=== PATIENT | female | born 1945 | race Caucasian/White ===

== ENCOUNTER 2020-02-03 10:50 | Emergency (ER) | payer MEDICARE ==
[~2020-02-03] VITALS: Ht 170.2 cm; Wt 123.2 kg
[~2020-02-03 10:50] MED LIST: ASPI-1265 PO; DULO-31 PO; LISI2.5T2 PO
[2020-02-03 11:20] VITALS: BP 134/80
[2020-02-03] MEDS ORDERED: TRAM50TA2 PO (12:25)
[2020-02-03] MEDS ORDERED: ketorolac tromethamine 15mg/ml inj. IM ONE (12:25)
== END 2020-02-03 13:03 | disposition home or self-care (01) ==
LOC: ER 10:50
DX: M25.572 Pain in left ankle and joints of left foot (principal); M19.072 Primary osteoarthritis, left ankle and foot; M25.472 Effusion, left ankle; Z86.14 Personal history of Methicillin resistant Staphylococcus aureus infection; Z98.890 Other specified postprocedural states; Z88.2 Allergy status to sulfonamides; Z88.5 Allergy status to narcotic agent; Z79.82 Long term (current) use of aspirin; Z79.899 Other long term (current) drug therapy
CPT/HCPCS: 73610; 96372; 99283; J1885

== ENCOUNTER 2022-03-10 14:00 | Emergency (ER) | payer MEDICARE ==
[~2022-03-10] VITALS: Ht 170.2 cm; Wt 115.9 kg
[~2022-03-10 14:00] MED LIST changes: +LISI2.5T14 PO; -LISI2.5T2 PO
[2022-03-10 14:08] VITALS: BP 147/73
[2022-03-10] MEDS ORDERED: ibuprofen 200mg tablet PO ONE (16:00)
[2022-03-10 16:35] LABS: BASOPHILS # (AUTO) 0.1 X10'3 (0-0.2); BASOPHILS % (AUTO) 1.3 % (0-1); EOSINOPHILS # (AUTO) 0.1 X10'3 (0-0.9); EOSINOPHILS % (AUTO) 1.5 % (0-6); HEMATOCRIT 42.4 % (35.0-45.0); HEMOGLOBIN 13.9 g/dl (12.0-16.0); LYMPHOCYTES % (AUTO) 24.4 % (21-51); MEAN CORPUSCULAR HEMOGLOBIN 32.4 PG (27.0-31.0); MEAN CORPUSCULAR HGB CONC 32.8 g/dL (33.0-36.5); MEAN CORPUSCULAR VOLUME 98.8 FL (78-98); MEAN PLATELET VOLUME 9.5 FL (7.4-10.4); MONOCYTES # (AUTO) 0.7 X10'3 (0-0.9); NEUTROPHILS # (AUTO) 5.1 X10'3 (1.8-7.7); NEUTROPHILS % (AUTO) 63.8 % (42-75); PLATELET COUNT 157 X10'3 (140-440); RED BLOOD COUNT 4.29 X10'6 (4.20-5.60); RED CELL DISTRIBUTION WIDTH 15.6 % (11.5-14.5)
[2022-03-10 16:58] LABS: ALANINE AMINOTRANSFERASE 40 U/L (12-78); ALBUMIN 2.9 G/DL (3.4-5.0); ALBUMIN/GLOBULIN RATIO 0.9 (1.1-1.5); ALKALINE PHOSPHATASE 78 IU/L (46-116); ANION GAP 3 (8-16); ASPARTATE AMINO TRANSFERASE 50 U/L (10-37); BILIRUBIN,TOTAL 0.4 MG/DL (0.1-1.0); BLOOD UREA NITROGEN 17 MG/DL (7-18); BUN/CREATININE RATIO 17.2 (6.6-38.0); C-REACTIVE PROTEIN 0.08 MG/DL (0.0-0.5); CALCIUM 9.4 MG/DL (8.5-10.1); CHLORIDE 107 MMOL/L (99-107); CREATININE 0.99 MG/DL (0.40-0.90); GLUCOSE 100 MG/DL (70-104); SODIUM 143 MMOL/L (135-145); TOTAL CARBON DIOXIDE 32.7 MMOL/L (24-32); TOTAL PROTEIN 6.1 G/DL (6.4-8.2); eGFR 54 ML/MIN
[2022-03-10 17:20] LABS: D-DIMER 0.84 MG/L FEU (0-0.50)
== END 2022-03-10 19:08 | disposition home or self-care (01) ==
LOC: ER 14:01
DX: M25.561 Pain in right knee (principal); M25.461 Effusion, right knee; Z87.440 Personal history of urinary (tract) infections; Z86.14 Personal history of Methicillin resistant Staphylococcus aureus infection; Z98.890 Other specified postprocedural states; Z88.2 Allergy status to sulfonamides; Z88.8 Allergy status to other drugs, medicaments and biological substances; Z79.82 Long term (current) use of aspirin; Z79.899 Other long term (current) drug therapy
CPT/HCPCS: 36415; 73564; 80053; 85025; 85379; 85651; 86140; 93971; 99285

== ENCOUNTER 2022-04-27 07:39 | Emergency (ER) | payer MEDICARE ==
[~2022-04-27] VITALS: Ht 170.2 cm; Wt 252.0 kg
[2022-04-27 09:15] LABS: BASOPHILS % (AUTO) 0.4 % (0-1); EOSINOPHILS % (AUTO) 0.4 % (0-6); HEMATOCRIT 44.9 % (35.0-45.0); HEMOGLOBIN 14.6 g/dl (12.0-16.0); LYMPHOCYTES % (AUTO) 9.1 % (21-51); MEAN CORPUSCULAR HEMOGLOBIN 32.3 PG (27.0-31.0); MEAN CORPUSCULAR HGB CONC 32.5 g/dL (33.0-36.5); MEAN CORPUSCULAR VOLUME 99.4 FL (78-98); MEAN PLATELET VOLUME 9.7 FL (7.4-10.4); MONOCYTES # (AUTO) 1.1 X10'3 (0-0.9); MONOCYTES % (AUTO) 9.8 % (2-12); NEUTROPHILS # (AUTO) 9.2 X10'3 (1.8-7.7); NEUTROPHILS % (AUTO) 80.3 % (42-75); PLATELET COUNT 128 X10'3 (140-440); RED BLOOD COUNT 4.52 X10'6 (4.20-5.60); WHITE BLOOD COUNT 11.5 X10'3 (4.5-11.0)
[2022-04-27 09:37] LABS: ALANINE AMINOTRANSFERASE 52 U/L (12-78); ALBUMIN 3.1 G/DL (3.4-5.0); ALBUMIN/GLOBULIN RATIO 0.9 (1.1-1.5); ALKALINE PHOSPHATASE 79 IU/L (46-116); ASPARTATE AMINO TRANSFERASE 64 U/L (10-37); BILIRUBIN,TOTAL 0.5 MG/DL (0.1-1.0); BLOOD UREA NITROGEN 10 MG/DL (7-18); BUN/CREATININE RATIO 10.8 (6.6-38.0); CALCIUM 8.9 MG/DL (8.5-10.1); CREATININE 0.93 MG/DL (0.40-0.90); GLUCOSE 136 MG/DL (70-104); TOTAL CARBON DIOXIDE 30.9 MMOL/L (24-32); TOTAL PROTEIN 6.5 G/DL (6.4-8.2); eGFR 58 ML/MIN
[2022-04-27 09:45] LABS: ANION GAP 10 (8-16); CHLORIDE 104 MMOL/L (99-107); SODIUM 145 MMOL/L (135-145)
[2022-04-27] MEDS ORDERED: normal saline 1000ML IV soln IVB ONE (10:45)
[2022-04-27] MEDS ORDERED: BEBTELOVIMAB 175 MG/2 ML VIAL IV ONE (12:35)
[2022-04-27] MEDS ORDERED: CefTRIAXone 2gm/D5W 50ml BAG 50 ML IV ONE (12:55)
[2022-04-27 13:12] LABS: CLARITY,URINE CLOUDY (Clear); COLOR,URINE YELLOW (Yellow); GLUCOSE, URINE NEGATIVE (Neg); KETONES,URINE NEGATIVE (Neg); LEUKOCYTE ESTERASE ,URINE MODERATE (Neg); NITRITES, URINE POSITIVE (Neg); OCCULT BLOOD,URINE NEGATIVE (Neg); PH,URINE 6.5 (4.8-8.0); PROTEIN,URINE NEGATIVE (Neg); UROBILINOGEN,URINE 0.2 E.U/dL (0.2-1.0)
[2022-04-27 13:14] LABS: UA COLLECTION TYPE VOIDED
[2022-04-27 13:25] LABS: BACTERIA,URINE 4+ /HPF (Neg); SQUAMOUS EPITHELIAL CELL,UR MODERATE /LPF (FEW); TRANSITIONAL EPI CELLS,URINE FEW /HPF
[2022-04-27 13:26] LABS: RBC,URINE NONE SEEN /HPF (0-2); WBC CLUMPS,URINE FEW /HPF (NEGATIVE); WBC,URINE 20-30 /HPF (0-4)
[2022-04-27] MEDS ORDERED: dexamethasone sod phosphate 10mg/ml inj IV STA (14:02)
[2022-04-27] MEDS ORDERED: BENZ-38 PO (14:07)
[2022-04-27] MEDS ORDERED: CEPH-585 PO (14:07)
--- NOTE | 2022-04-27 14:20 | NUR ---
Post ambulation pulse ox is 94% on RA
[2022-04-27 14:22] VITALS: BP 144/75
== END 2022-04-27 14:51 | disposition home or self-care (01) ==
LOC: ER 07:39
DX: U07.1 COVID-19 (principal); Z86.14 Personal history of Methicillin resistant Staphylococcus aureus infection; Z88.5 Allergy status to narcotic agent; Z79.899 Other long term (current) drug therapy; Z88.2 Allergy status to sulfonamides
CPT/HCPCS: 36415; 71045; 80053; 81001; 83605; 83880; 84145; 85025; 87040; 87635; 93005; 96361; 96365; 96375; 99285; C9803; J0696; J1100; J7030; M0222; Q0222

== ENCOUNTER 2025-05-16 07:08 | Emergency (ER) | payer MEDICARE ==
[~2025-05-16] VITALS: Ht 170.2 cm; Wt 105.0 kg
--- NOTE | 2025-05-16 07:27 | Physician Documentation ---
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 The patient states she was in her wheelchair reached down and fell forward injuring her right hip. Patient states she has a fall a year ago doing the same thing and she feels like she has re-injured her injury from last year. The patient complains of moderate pain with movement of the right hip. The patient states she is not currently on any blood thinners. The patient denies any recent illness. She denies any f luis m chills nausea or vomiting. Medication Reconciliation Allergies: Coded Allergies: oxycodone (Verified Allergy, Intermediate, DIZZINESS, 05/16/25) Sulfa (Sulfonamide Antibiotics) (Verified Allergy, Unknown, 05/16/25) Scheduled Aspirin (Aspirin), 1 TAB.CHEW PO DAILY Cefpodoxime Proxetil (Cefpodoxime Proxetil), 1 TAB PO Q12H Duloxetine Hcl* (Cymbalta*), 60 MG PO DAILY, (Reported) Lisinopril (Lisinopril), 1 TAB PO DAILY, (Reported) Past Medical History Past Medical History: UTI, MRSA Abscess Past Surgical History: orthopedic surgeries Alcohol Use: None Drug Use: none Lives with: Spouse Lives In: Home Review of Systems All Other Systems at this time: Reviewed and Negative Physical Exam Physical Exam Vital Signs: Temperature: 99.0, Source: Oral, Heart Rate: 74, Respiratory Rate: 14, BP: 153/110, Pulse Oximetry: 99, Weight: 105.000 Physical Exam VITALS: Reviewed and as above. GENERAL: Alert, no apparent distress. HEENT: Normocephalic, atraumatic, PERRL, EOMI, dry mucosa, no erythema RESPIRATORY: Lungs clear, normal breath sounds, no respiratory distress. CHEST: No accessory muscle use, no retractions CV: Regular rate, rhythm, no edema, no murmur, No: JVD GI: Soft, non-tender, bowels sounds present, no rebound, guarding, or rigidity BACK: No CVA tenderness, or swelling MUSCULOSKELETAL: Pain with range of motion of the right hip there was no length discrepancy distal neurovascular exam was unremarkable SKIN: Warm and dry, no rash NEURO: Oriented x4, No motor or sensory deficit PSYCH: Normal mood and affect, no agitation Progress Results/Orders Results/Orders Orders - OHLELLE JENNINGS MD Hip Unilateral 2-3 Views (05/16/25 ) Chest,Single View (05/16/25 07:24) Monitor (05/16/25 07:24) Saline Lock (05/16/25 07:24) Oxygen (05/16/25 07:24) Hs Troponin I W Calculations (05/16/25 10:24) Straight Cath For Urine Sample (05/16/25 07:24) Completed Orders - ELLE LILLY MD Morphine 2mg/Ml Inj. (Morphine Inj.) (05/16/25 07:20) Ondansetron Inj. (Zofran 4mg/2ml Vial) (05/16/25 07:20) Hip Unilateral 2-3 Views (05/16/25 ) Chest,Single View (05/16/25 07:24) Cbc/Diff (05/16/25 07:24) BMP (05/16/25 07:24) PBNP (05/16/25 07:24) Electrocardiogram (05/16/25 07:24) Hs Troponin I W Calculations (05/16/25 07:24) Hs Troponin I W Calculations (05/16/25 09:24) Normal Saline 1000ml (0.9% Sodium Chlori (05/16/25 09:00) Ua W/Microscopic, Cult If Ind (05/16/25 09:50) Cult Urine + [address] (05/16/25 10:17) Ceftriaxone/[id number] 1gm (Rocephin 1 (05/16/25 11:00) Vital Signs 05/16/25 05/16/25 05/16/25 05/16/25 07:18 07:33 07:38 08:12 Temp 99.0 Pulse 74 67 Resp 14 14 14 10 B/P (MAP) 153/110 154/78 (103) Pulse Ox 99 98 05/16/25 05/16/25 05/16/25 05/16/25 09:15 10:09 11:15 11:42 Temp 98.4 Pulse 74 72 71 79 Resp 12 10 16 14 B/P (MAP) 147/80 (102) 137/68 (91) 154/70 (98) 154/70 Pulse Ox 94 98 96 98 O2 Flow Rate 0 Laboratory Tests Test 05/16/25 07:25 05/16/25 09:50 05/16/25 10:11 White Blood Count 12.9 H Red Blood Count 4.40 Hemoglobin 14.2 Hematocrit 42.5 Mean Corpuscular Volume 96.6 Mean Corpuscular Hemoglobin 32.3 H Mean Corpuscular Hemoglobin Concent 33.4 Red Cell Distribution Width 15.7 H Platelet Count 160 Mean Platelet Volume 9.9 Neutrophils (%) (Auto) 84.4 H Lymphocytes (%) (Auto) 7.5 L Monocytes (%) (Auto) 7.5 Eosinophils (%) (Auto) 0 Basophils (%) (Auto) 0.6 Neutrophils # (Auto) 10.9 H Lymphocytes # (Auto) 1.0 L Monocytes # (Auto) 1.0 H Eosinophils # (Auto) 0.0 Basophils # (Auto) 0.1 CBC Comment Sodium Level 142 Potassium Level 4.3 Chloride Level 107 Carbon Dioxide Level 29.2 Anion Gap 6 L Blood Urea Nitrogen 22 H Creatinine 0.96 H Estimated GFR/1.73 m2 56 BUN/Creatinine Ratio 22.9 H Glucose Level 150 H Calcium Level 8.9 Troponin I High Sensitivity 23 25 Pro-B-Type Natriuretic Peptide 459 H Albumin 3.0 L Chemistry Comments Urine Specimen Description Voided Urine Color Straw Urine Clarity Slightly cloudy Urine pH 6.0 Urine Specific Traphill <=1.005 Urine Protein Negative Urine Glucose (UA) Negative Urine Ketones Negative Urine Occult Blood Negative Urine Nitrite Positive H Urine Bilirubin Negative Urine Urobilinogen 0.2 Urine Leukocyte Esterase Trace H Urine RBC None seen Urine WBC 5-10 H Urine Squamous Epithelial Cells Few Urine Bacteria 4+ Urine Mucus None seen Urine Culture Indicated Indicated Volume Urine Centrifuged 10 ml Urine Comment Troponin I High Sens Percent Delta 8 Troponin I Hi Sens Absolute Change 2 Microbiology Date/Time Source Procedure Growth Status 05/16/25 10:17 Urine Voided Urine Culture - Final Escherichia Coli Complete Medical Decision Making Additional information obtaine: old records Findings The patient is an 79-year-old female who had a ground level fall out of her wheelchair was complaining of right hip pain. The patient's plain film x-rays were interpreted by me the right hip demonstrated no fracture no dislocation and no significant soft tissue swelling I interpreted the x-rays as normal I have also reviewed the radiologist's interpretation as well the patient's labs were reviewed the patient has been hemodynamically stable the patient does appear to have a urinary tract infection the patient was treated for urinary tract infection there was no signs of sepsis there was no sign of other intra- abdominal pathology on exam she has a benign exam of the belly. The patient's previous hospitalizations were reviewed the patient's pulse oximetry was i nterpreted as normal and adequate and the patient will be discharged. She was given IV antibiotics in the emergency department. Differential Diagnosis colitis, uti, hip fracture, hip contusion. Departure Time of Disposition: 11:18 Disposition: 01 HOME / SELF CARE / HOMELESS Impression: Primary Impression: Fall Qualified Codes: W19.XXXA - Unspecified fall, initial encounter Additional Impression: UTI (urinary tract infection) Qualified Codes: N30.00 - Acute cystitis without hematuria Discharge Instructions: Fall Prevention in the Home, Adult, [id number], Urinary Tract Infection, Adult Referrals: NO PRIMARY CARE PROVIDER (PCP) Prescriptions Cefpodoxime Proxetil (Cefpodoxime Proxetil) 100 Mg Tablet 1 TAB PO Q12H for 7 Days, #14 TAB 0 Refills Prov: ELLE LILLY MD 05/16/25 Signature Scribe Signature: no scribe Attestation: The note accurately reflects work and decisions made by me.Elle Lilly MD 05/19/25 06:57 ELLE LILLY MD May 16, 2025 07:27
[2025-05-16] MEDS: ondansetron/PF 4mg/2ml inj IV ONE (07:32)
--- NOTE | 2025-05-16 07:32 | ELECTROCARDIOGRAPH REPORT ---
[facility] Test Date: 2025-05-16 Test Time: 07:28:27 Pat Name: WOJCIECH GUERRERO Department: EMERGENCY ROOM [id number] Room: Gender: F Chemistry Teacher: CRIS : [id number] Requested By: ELLE AMAYA Order Number: [id number] Reading MD: Dr. Tito Monaco Measurements Intervals Rudd Rate: 67 P: 0 WY: 0 QRS: 57 QRSD: 101 T: 91 QT: 439 QTc: 464 Interpretive Statements Atrial fibrillation Abnormal R-wave progression, early transition Borderline ST depression, lateral leads Electronically Signed On 05-22-2025 0:22:[address] Tito Monaco Please click the below link to view image of tracing.
[2025-05-16 07:47] LABS: MEAN PLATELET VOLUME 9.9 FL (7.4-10.4); RED CELL DISTRIBUTION WIDTH 15.7 % (11.5-14.5)
[2025-05-16 08:14] LABS: CREATININE 0.96 MG/DL (0.40-0.90); PRO BRAIN NATRIURETIC PEPTIDE 459 PG/ML (0-450); TOTAL CARBON DIOXIDE 29.2 MMOL/L (24-32); eCRCL 45 ML/MIN; eGFR 56 ML/MIN
--- NOTE | 2025-05-16 08:47 | RADIOLOGY REPORT ---
CHEST RADIOGRAPH INDICATION: CP TECHNIQUE: Single frontal view of the chest was obtained COMPARISON: None FINDINGS: Lines and Tubes: None Lungs: Clear Pleura: No effusion. No pneumothorax. Cardiomediastinal contours: Unremarkable Bones: Unremarkable IMPRESSION: No acute disease.
--- NOTE | 2025-05-16 08:47 | RADIOLOGY REPORT ---
CLINICAL INDICATION: hip pain fall TECHNIQUE: DI HIP UNILATERAL 2-3 VIEWS right COMPARISON: None FINDINGS/IMPRESSION: : There is no evidence of acute fracture or dislocation. Soft tissues are unremarkable. Bilateral hip arthroplasty.
[2025-05-16] MEDS: normal saline 1000ml 1,000 ML IV ONE (08:59)
[2025-05-16 10:11] LABS: LEUKOCYTE ESTERASE ,URINE TRACE (Neg); NITRITES, URINE POSITIVE (Neg); OCCULT BLOOD,URINE NEGATIVE (Neg)
[2025-05-16 10:13] LABS: UA COLLECTION TYPE VOIDED
[2025-05-16 10:17] LABS: MUCUS STRANDS NONE SEEN /LPF (Neg); SQUAMOUS EPITHELIAL CELL,UR FEW /LPF (FEW)
[2025-05-16] MEDS: CefTRIAXone/D5W-Rocephin 1gm 50 ML IV ONE (11:15)
[2025-05-16] MEDS ORDERED: CEFP100T7 PO (11:18)
[2025-05-16 11:42] VITALS: BP 154/70; PULSE 79; RESP 14; TEMP 98.4; O2SAT 98
== END 2025-05-16 11:41 | disposition home or self-care (01) ==
LOC: ER 07:08
DX: S79.911A Unspecified injury of right hip, initial encounter (principal); N39.0 Urinary tract infection, site not specified; I48.91 Unspecified atrial fibrillation; Z86.718 Personal history of other venous thrombosis and embolism; Z86.14 Personal history of Methicillin resistant Staphylococcus aureus infection; Z87.440 Personal history of urinary (tract) infections; Z88.2 Allergy status to sulfonamides; Z88.5 Allergy status to narcotic agent; Z79.82 Long term (current) use of aspirin; Z79.899 Other long term (current) drug therapy; Z98.890 Other specified postprocedural states; W05.0XXA Fall from non-moving wheelchair, initial encounter; Y93.89 Activity, other specified; Y92.89 Other specified places as the place of occurrence of the external cause; Y99.8 Other external cause status
CPT/HCPCS: 36415; 71045; 73502; 80048; 81001; 83880; 84484; 85025; 87077; 87088; 87186; 93005; 96361; 96365; 96375; 99285; J0696; J2270; J2405; J7030